=== PATIENT | female | born 1985 | race Caucasian/White ===

== ENCOUNTER 2017-08-20 16:47 | Emergency (ER) | payer OTHER ==
[2017-08-20 17:11] VITALS: BP 105/81; PULSE 104; TEMP 98.7; BMI 19.5
[2017-08-20] MEDS ORDERED: KETOROLAC TROMETHAMINE 30 MG/1 ML VIAL IM ONE (17:11)
--- NOTE | 2017-08-20 17:11 | PDOC ---
Rapid Medical Evaluation Time Seen by Provider: 08/20/17 17:07 Medical Evaluation: Allergies Allergy/AdvReac Type Severity Reaction Status Date / Time Penicillins Allergy Rash Verified 02/21/16 16:27 08/20/17 17:07 I have performed a brief in-person evaluation of this patient. The patient presents with a chief complaint of: chest pain x 3 days constantly describes as squeezing Denies dizziness, nausea or shortness of breath Pertinent physical exam findings: NAD unlabored breathing +tenderness with palpation in mid chest I have ordered the following: ekg The patient will proceed to the ED for further evaluation.
[2017-08-20] MEDS ORDERED: KETOROLAC TROMETHAMINE 30 MG/1 ML VIAL ONE (17:44)
[2017-08-20 17:59] LABS: BASO % 0.8 % (0-2.0); EOS % 2.3 % (0-4.5); HEMATOCRIT 33.2 % (32.4-45.2); HEMOGLOBIN 10.9 GM/dL (10.7-15.3); LYMPH % 37.2 % (8-40); MCH 26.9 pg (25.7-33.7); MCHC 32.8 g/dl (32.0-36.0); MEAN PLT VOLUME 6.8 fl (7.5-11.1); MONO % 6.9 % (3.8-10.2); NEUT % 52.8 % (42.8-82.8); PLATELET COUNT 354 K/MM3 (134-434); RBC 4.05 M/mm3 (3.60-5.2); WHITE BLOOD COUNT 5.2 K/mm3 (4.0-10.0)
[2017-08-20 18:28] LABS: ALBUMIN 3.5 g/dl (3.4-5.0); ANION GAP 9 (8-16); BLOOD UREA NITROGEN 14 mg/dL (7-18); CALCIUM 8.5 mg/dL (8.5-10.1); CHLORIDE 103 mmol/L (98-107); CO2 27 mmol/L (21-32); CREATININE 0.8 mg/dL (0.55-1.02); GLUCOSE,RANDOM 92 mg/dL (74-106); SGOT/AST 17 U/L (15-37); SGPT/ALT 17 U/L (12-78); SODIUM 139 mmol/L (136-145); TOT PROT 8.2 g/dl (6.4-8.2)
[2017-08-20 18:32] LABS: ALK PHOS 88 U/L (45-117); BILIRUBIN,TOTAL 0.2 mg/dL (0.2-1.0)
[2017-08-20] MEDS ORDERED: SODIUM CHLORIDE 1,000 ML IV STA (20:19)
--- NOTE | 2017-08-20 21:05 | PDOC ---
History of Present Illness - General History Source: Patient Exam Limitations: No Limitations - History of Present Illness Initial Comments: 08/20/17 21:06 The patient is a wheelchair bound 32 year old female with a significant PMH of severe rheumatoid arthritis, anemia, and crohn's disease who presents to the emergency department with 3 days of chest pain. The patient reports that her chest pain is non radiating. She states that her chest pain is worsened with inspiration and coughing. The patient describes her chest pain as a squeezing feeling. She states that she has been living in a snf in [place] for 1 month with her son. The patient reports that she has been moving around in living spaces due to her condition. She reports that her primary care physician is at [facility] but came to ER because it was closer. The patient denies any , shortness of breath, headache or dizziness.e patient denies any ever, chills, nausea, vomit, diarrhea, constipation or urinary symptoms It is noted that the patient has a family history (sister) of lupus Allergies: Penicillin Past surgical history: Right ankle achilles Social history: the patient lives in a snf in [place] with her son. PCP: At [facility] <Keenan Hunt - Last Filed: 08/21/17 00:45> <Any Shukla - Last Filed: 08/21/17 01:41> - General Chief Complaint: Chest Pain Stated Complaint: CHEST PAIN Time Seen by Provider: 08/20/17 17:07 Past History <Keenan Hunt - Last Filed: 08/21/17 00:45> - Past Medical History Anemia: Yes CVA: No COPD: No Other medical history: RA - Surgical History Orthopedic Surgery: Yes - Suicide/Smoking/Psychosocial Hx Smoking History: Never smoked Information on smoking cessation initiated: No Hx Alcohol Use: No (denies) Drug/Substance Use Hx: No (denies) Substance Use Type: None <Any Shukla - Last Filed: 08/21/17 01:41> - Past Medical History Allergies/Adverse Reactions: Allergies Allergy/AdvReac Type Severity Reaction Status Date / Time Penicillins Allergy Rash Verified 08/20/17 17:07 Home Medications: Ambulatory Orders NK [No Known Home Medication] 08/20/17 Review of Systems - Review of Systems Able to Perform ROS?: Yes Comments:: 08/20/17 21:07 CONSTITUTIONAL: Absent: fever, chills, diaphoresis, generalized weakness, malaise, loss of appetite HEENT: Absent: rhinorrhea, nasal congestion, throat pain, throat swelling, difficulty swallowing, mouth swelling, ear pain, eye pain, visual Changes CARDIOVASCULAR: Present (+) chest pain Absent: syncope, palpitations, irregular heart rate, lightheadedness, peripheral edema RESPIRATORY: Present (+)cough Absent: shortness of breath, dyspnea with exertion, orthopnea, wheezing, stridor , hemoptysis GASTROINTESTINAL: Absent: abdominal pain, abdominal distension, nausea, vomiting, diarrhea, constipation, melena, hematochezia GENITOURINARY: Absent: dysuria, frequency, urgency, hesitancy, hematuria, flank pain, genital pain MUSCULOSKELETAL: Absent: myalgia, arthralgia, joint swelling SKIN: Absent: rash, itching, pallor HEMATOLOGIC/IMMUNOLOGIC: Absent: easy bleeding, easy bruising, lymphadenopathy, frequent infections ENDOCRINE: Absent: unexplained weight gain, unexplained weight loss, heat intolerance, cold intolerance NEUROLOGIC: Absent: headache, focal weakness or paresthesias, dizziness, unsteady gait, seizure, mental status changes, bladder or bowel incontinence PSYCHIATRIC: Absent: anxiety, depression, suicidal or homicidal ideation, hallucinations. <Keenan Hunt - Last Filed: 08/21/17 00:45> *Physical Exam - Vital Signs Last Vital Signs Temp Pulse Resp BP Pulse Ox 98.7 F 104 H 19 105/81 97 08/20/17 17:07 08/20/17 17:07 08/20/17 17:07 08/20/17 17:07 08/20/17 17:07 - Physical Exam Comments: 08/20/17 21:07 GENERAL: Well developed, well nourished. Awake and alert. No acute distress. HEENT: Normocephalic, atraumatic. PERRLA, EOMI. No conjunctival pallor. Sclera are non- icteric. Moist mucous membranes. Oropharynx is clear. NECK: Supple. Full ROM. No JVD. Carotid pulses 2+ and symmetric, without bruits. No thyromegaly. No lymphadenopathy. CARDIOVASCULAR: Regular rate and rhythm. No murmurs, rubs, or gallops. Distal pulses are 2+ and symmetric. PULMONARY: No evidence of respiratory distress. Lungs clear to auscultation bilaterally. No wheezing, rales or rhonchi. ABDOMINAL: Soft. Non-tender. Non-distended. No rebound or guarding. No organomegaly. Normoactive bowel sounds. MUSCULOSKELETAL (+) Extensive Rheumatoid arthritis, contractive of hands, deformity of digits and ankles. Weakness in legs. No tenderness. No CVA tenderness. EXTREMITIES: (+) lower extremities are plantar at rest (uses wheelchair and walker to ambulate) No cyanosis. No clubbing. No edema. No calf tenderness. SKIN: Warm and dry. Normal capillary refill. No rashes. No jaundice. NEUROLOGICAL: Alert, awake, appropriate. Cranial nerves 2-12 intact. No deficits to light touch and temperature in face, upper extremities and lower extremities. No motor deficits in the in face, upper extremities and lower extremities. Normoreflexic in the upper and lower extremities. Normal speech. Toes are down- going bilaterally. Gait is normal without ataxia. PSYCHIATRIC: Cooperative. Good eye contact. Appropriate mood and affect. <Keenan Hunt - Last Filed: 08/21/17 00:45> - Vital Signs Last Vital Signs Temp Pulse Resp BP Pulse Ox 98.7 F 104 H 19 105/81 97 08/20/17 17:07 08/20/17 17:07 08/20/17 17:07 08/20/17 17:07 08/20/17 17:07 <Any Shukla - Last Filed: 08/21/17 01:41> ED Treatment Course - LABORATORY CBC & Chemistry Diagram: 08/20/17 17:50 08/20/17 17:50 - ADDITIONAL ORDERS Additional order review: Laboratory Results 08/20/17 08/20/17 08/20/17 17:50 17:50 17:50 D-Dimer 728 H Sodium 139 Potassium 4.0 Chloride 103 Carbon Dioxide 27 Anion Gap 9 BUN 14 Creatinine 0.8 Creat Clearance w eGFR > 60 Random Glucose 92 Calcium 8.5 Total Bilirubin 0.2 D AST 17 ALT 17 Alkaline Phosphatase 88 Creatine Kinase Troponin I Total Protein 8.2 Albumin 3.5 Serum , Qual Negative 08/20/17 17:35 D-Dimer Sodium Potassium Chloride Carbon Dioxide Anion Gap BUN Creatinine Creat Clearance w eGFR Random Glucose Calcium Total Bilirubin AST ALT Alkaline Phosphatase Creatine Kinase 50 Troponin I < 0.02 Total Protein Albumin Serum , Qual 08/20/17 17:50 RBC 4.05 MCV 82.0 MCHC 32.8 RDW 14.0 MPV 6.8 L Neutrophils % 52.8 Lymphocytes % 37.2 Monocytes % 6.9 Eosinophils % 2.3 Basophils % 0.8 D - Medications Given in the ED: ED Medications Discontinued Medications Generic Name Dose Route Start Last Admin Trade Name Freq PRN Reason Stop Dose Admin Ketorolac Tromethamine 30 mg 08/20/17 17:11 08/20/17 17:55 Toradol Injection - IM 08/20/17 17:12 30 mg ONCE ONE Administration <Keenan Hunt - Last Filed: 08/21/17 00:45> - LABORATORY CBC & Chemistry Diagram: 08/20/17 17:50 08/20/17 17:50 - ADDITIONAL ORDERS Additional order review: Laboratory Results 08/20/17 08/20/17 08/20/17 17:50 17:50 17:50 D-Dimer 728 H Sodium 139 Potassium 4.0 Chloride 103 Carbon Dioxide 27 Anion Gap 9 BUN 14 Creatinine 0.8 Creat Clearance w eGFR > 60 Random Glucose 92 Calcium 8.5 Total Bilirubin 0.2 D AST 17 ALT 17 Alkaline Phosphatase 88 Creatine Kinase Troponin I Total Protein 8.2 Albumin 3.5 Serum , Qual Negative 08/20/17 17:35 D-Dimer Sodium Potassium Chloride Carbon Dioxide Anion Gap BUN Creatinine Creat Clearance w eGFR Random Glucose Calcium Total Bilirubin AST ALT Alkaline Phosphatase Creatine Kinase 50 Troponin I < 0.02 Total Protein Albumin Serum , Qual 08/20/17 17:50 RBC 4.05 MCV 82.0 MCHC 32.8 RDW 14.0 MPV 6.8 L Neutrophils % 52.8 Lymphocytes % 37.2 Monocytes % 6.9 Eosinophils % 2.3 Basophils % 0.8 D - RADIOLOGY Radiology Studies Ordered: Category Date Time Status CHEST CTA [CT] Stat CT Scan 08/20/17 20:19 Ordered - Medications Given in the ED: ED Medications Discontinued Medications Generic Name Dose Route Start Last Admin Trade Name Freq PRN Reason Stop Dose Admin Ketorolac Tromethamine 30 mg 08/20/17 17:11 08/20/17 17:55 Toradol Injection - IM 08/20/17 17:12 30 mg ONCE ONE Administration <Any Shukla - Last Filed: 08/21/17 01:41> Medical Decision Making - Medical Decision Making 08/21/17 01:37 This 32-year-old female with severe rheumatoid arthritis who uses a walker and wheelchair resides in a snf. She missed a deadline for the evening entrance into the snf because her workup was done after 10 PM. He has great difficulty in getting her Medicaid because she requires requires help with her wheelchair. It was felt it was best if she be discharged in the morning when the snf will accept her and an ambulette could take her there -her VS are stable -she does not require any further monitoring,lab work or imaging studies I spoke w Dr Page and she agrees this pt is not an observation candidate. plan pt is awaiting placement back to her snf and this will be done about 6 am <Any Shukla - Last Filed: 08/21/17 01:41> *DC/Admit/Observation/Transfer - Attestations Scribe Attestion: 08/20/17 21:08 Documentation prepared by Keenan Hunt, acting as medical insurance verifier for Any Shukla MD. <Keenan Hunt - Last Filed: 08/21/17 00:45> <Any Shukla - Last Filed: 08/21/17 01:41> Diagnosis at time of Disposition: Musculoskeletal chest pain Rheumatoid arthritis Qualifiers: Rheumatoid arthritis location: unspecified site Rheumatoid factor presence: unspecified presence Qualified Code(s): M06.9 - Rheumatoid arthritis, unspecified - Discharge Dispostion Condition at time of disposition: Stable - Patient Instructions Printed Discharge Instructions: DI for Atypical Chest Pain Additional Instructions: you may take tyelnol or aleve for pain Return for any worsening symptoms
--- NOTE | 2017-08-21 10:40 | EKG ---
Test Reason : Blood Pressure : / mmHG Vent. Rate : 076 BPM Atrial Rate : 076 BPM P-R Int : 124 ms QRS Dur : 068 ms QT Int : 380 ms P-R-T Axes : 059 040 023 degrees QTc Int : 427 ms NORMAL SINUS RHYTHM NORMAL ECG WHEN COMPARED WITH ECG OF 21-FEB-2016 16:33, NO SIGNIFICANT CHANGE WAS FOUND Confirmed by ISAIAS DALY MD ([id number]) on 08/21/2017 10:39:59 AM Referred By: Confirmed By:ISAIAS DALY MD
== END 2017-08-21 07:00 | disposition home or self-care (01) ==
LOC: JER 16:47
PROC: 3E0337Z Introduction of Electrolytic and Water Balance Substance into Peripheral Vein, Percutaneous Approach (ICD-10-PCS; principal; 2017-08-20)
PROC: 3E0233Z Introduction of Anti-inflammatory into Muscle, Percutaneous Approach (ICD-10-PCS; 2017-08-20)
DX: R07.89 Other chest pain (principal); M86.9 Osteomyelitis, unspecified; D64.9 Anemia, unspecified; Z87.19 Personal history of other diseases of the digestive system; R26.89 Other abnormalities of gait and mobility; Z99.89 Dependence on other enabling machines and devices; Z59.0 Homelessness
CPT/HCPCS: 36415; 71275-TC; 80053; 82550; 84484; 84703; 85025; 85379; 93005; 93010; 96360; 96372; 99284-25; J7030